=== PATIENT | male | born 1980 | race Caucasian/White ===

== ENCOUNTER 2017-01-18 04:36 | Emergency (ER) | payer MEDICAID ==
[~2017-01-18] VITALS: Ht 170.2 cm; Wt 97.0 kg
[~2017-01-18 04:36] MED LIST: OXCA300T46 PO; VENL-67 PO
[2017-01-18 06:00] LABS: BASOPHILS % (AUTO) 0.6 % (0.0-2.0); EOSINOPHILS % (AUTO) 1.3 % (1.0-6.0); LYMPHOCYTES % (AUTO) 13.3 % (22.0-44.0); MEAN CORPUSCULAR HEMOGLOBIN 28.8 pg (26.0-34.0); MEAN CORPUSCULAR HGB CONC 32.5 G/dL (31.0-37.0); MEAN CORPUSCULAR VOLUME 89 fL (80-100); MONOCYTES # (AUTO) 0.8 K/uL (0.1-1.0); MONOCYTES % (AUTO) 10.7 % (2.0-9.0); NEUTROPHILS # (AUTO) 5.8 K/uL (1.8-7.7); NEUTROPHILS % (AUTO) 74.1 % (40.0-70.0); PLATELET COUNT (AUTO) 239 K/uL (150-450); RED BLOOD CELL COUNT(AUTO) 4.86 MIL/uL (4.50-5.90); RED CELL DISTRIBUTION WIDTH 13.2 % (11.5-14.5); WHITE BLOOD COUNT (AUTO) 7.8 K/uL (4.5-11.0)
[2017-01-18 06:10] LABS: ANION GAP 7 mmol/L (8-16); CALCIUM, TOTAL 8.6 mg/dL (8.8-10.5); CARBON DIOXIDE 28 mmol/L (22-29); CHLORIDE 104 mmol/L (98-107); CREATININE 1.15 mg/dL (0.60-1.30); GLOMERULAR FILTR. RATE CALC > 60 mL/min (>60); POTASSIUM 3.7 mmol/L (3.5-5.1); SODIUM SERUM 139 mmol/L (136-145); UREA NITROGEN, BLOOD 12 mg/dL (7-18)
[2017-01-18 06:15] LABS: ALANINE AMINOTRANSFERASE 52 U/L (12-78); ALBUMIN 3.7 g/dL (3.4-5.0); ASPARTATE AMINOTRANSFERASE 51 U/L (15-37); BILIRUBIN,TOTAL 0.6 mg/dL (0.1-1.0)
[2017-01-18] MEDS ORDERED: KETOROLAC TROMETHAMINE 60 MG/2 ML VIAL IM ONE (07:30)
[2017-01-18] MEDS ORDERED: LORazepam 2 MG/ML VIAL IVP ONE (11:15)
[2017-01-18] MEDS ORDERED: FentaNYL CITRATE-PF 100 MCG/2 ML VIAL IVP ONE (13:30)
[2017-01-18 14:24] VITALS: BP 123/74
== END 2017-01-18 14:56 | disposition home or self-care (01) ==
LOC: EMS 04:42
DX: S39.012A Strain of muscle, fascia and tendon of lower back, initial encounter (principal); F17.220 Nicotine dependence, chewing tobacco, uncomplicated; F19.90 Other psychoactive substance use, unspecified, uncomplicated; Z88.8 Allergy status to other drugs, medicaments and biological substances
CPT/HCPCS: 36415; 71010; 72100; 72146; 80053; 80307; 85025; 96372; 96374; 96375; 99285; G0480; J1885; J2060; J3010

== ENCOUNTER 2017-01-20 18:48 | Emergency (ER) | payer MEDICAID ==
[~2017-01-20] VITALS: Ht 182.9 cm; Wt 90.9 kg
[2017-01-20] MEDS ORDERED: OXYC10TA93 PO (19:05)
[2017-01-20] MEDS ORDERED: KETOROLAC TROMETHAMINE 60 MG/2 ML VIAL IM ONE (19:15)
[2017-01-20 21:05] VITALS: BP 131/82
== END 2017-01-20 21:07 | disposition home or self-care (01) ==
LOC: EMS 18:49
DX: M54.5 Low back pain (principal); F15.10 Other stimulant abuse, uncomplicated; F41.9 Anxiety disorder, unspecified; F20.9 Schizophrenia, unspecified; F17.220 Nicotine dependence, chewing tobacco, uncomplicated; F19.90 Other psychoactive substance use, unspecified, uncomplicated; Z88.8 Allergy status to other drugs, medicaments and biological substances; V00.131D Fall from skateboard, subsequent encounter
CPT/HCPCS: 96372; 99283; J1885

== ENCOUNTER 2020-02-21 17:37 | Inpatient (IN) | payer MEDICAID, OTHER ==
[~2020-02-21] VITALS: Ht 183.5 cm; Wt 109.3 kg
[~2020-02-21 17:37] MED LIST changes: +OXYC10TA48 PO
[2020-02-21] MEDS ORDERED: QUET25TA PO (17:40)
[2020-02-21 18:20] LABS: BASOPHILS % (AUTO) 1.2 % (0.0-2.0); EOSINOPHILS % (AUTO) 2.5 % (1.0-6.0); HEMOGLOBIN 16.5 g/dL (13.5-17.5); LYMPHOCYTES # (AUTO) 1.7 K/uL (1.0-4.8); LYMPHOCYTES % (AUTO) 23.2 % (22.0-44.0); MEAN CORPUSCULAR HEMOGLOBIN 29.5 pg (26.0-34.0); MEAN CORPUSCULAR HGB CONC 33.6 G/dL (31.0-37.0); MEAN CORPUSCULAR VOLUME 88 fL (80-100); MONOCYTES # (AUTO) 0.6 K/uL (0.1-1.0); MONOCYTES % (AUTO) 7.7 % (2.0-9.0); NEUTROPHILS # (AUTO) 4.7 K/uL (1.8-7.7); NEUTROPHILS % (AUTO) 65.4 % (40.0-70.0); PLATELET COUNT (AUTO) 273 K/uL (150-450); RED BLOOD CELL COUNT(AUTO) 5.58 MIL/uL (4.50-5.90)
[2020-02-21 18:36] LABS: ANION GAP 10 mmol/L (8-16); CALCIUM, TOTAL 9.4 mg/dL (8.8-10.5); CARBON DIOXIDE 26 mmol/L (22-29); CHLORIDE 105 mmol/L (98-107); CREATININE 1.11 mg/dL (0.60-1.30); GLOMERULAR FILTR. RATE CALC > 60 mL/min (>60); GLUCOSE,RANDOM 110 mg/dL (70-110); POTASSIUM 3.7 mmol/L (3.5-5.1); SODIUM SERUM 141 mmol/L (136-145); UREA NITROGEN, BLOOD 15 mg/dL (7-18)
[2020-02-21 18:41] LABS: ALANINE AMINOTRANSFERASE 25 U/L (12-78); ALBUMIN 4.5 g/dL (3.4-5.0); ALKALINE PHOSPHATASE 53 U/L (46-116); ASPARTATE AMINOTRANSFERASE 18 U/L (15-37); BILIRUBIN,TOTAL 1.2 mg/dL (0.1-1.0); TOTAL PROTEIN, SERUM 7.9 g/dL (6.4-8.2)
[2020-02-21 19:01] LABS: AMPHET/METH SCREEN,URINE NEGATIVE (NEGATIVE); BARBITURATE SCREEN, URINE NEGATIVE (NEGATIVE); BENZODIAZEPINES SCREEN,URINE POSITIVE (NEGATIVE); CANNABINOID SCREEN,URINE NEGATIVE (NEGATIVE); COCAINE SCREEN,URINE NEGATIVE (NEGATIVE); METHADONE SCREEN, URINE NEGATIVE (NEGATIVE); OPIATE SCREEN,URINE NEGATIVE (NEGATIVE)
[2020-02-21 19:06] LABS: PHENCYCLIDINE SCREEN,URINE NEGATIVE (NEGATIVE)
[2020-02-21] MEDS ORDERED: ZOLPIDEM TARTRATE 10 MG TABLET PO PRN (19:30)
[2020-02-21] MEDS ORDERED: QUEtiapine FUMARATE 100 MG TABLET PO PRN (19:30)
[2020-02-22 00:40] VITALS: BP 145/90
[2020-02-22] MEDS ORDERED: DOCUSATE SODIUM 100 MG CAPSULE PO PRN (07:45)
[2020-02-22] MEDS ORDERED: MAGNESIUM HYDROXIDE SUSPENSION 30 ML UDCUP PO PRN (07:45)
[2020-02-22] MEDS ORDERED: IBUPROFEN 400 MG TABLET PO PRN (07:45)
[2020-02-22] MEDS ORDERED: MAG HYDROX/AL HYDROX/SIMETH ES 30 ML SUSPENSION UDCUP PO PRN (07:45)
[2020-02-22] MEDS ORDERED: ALBUTEROL SULFATE HFA 90 MCG/PUFF 8 GM INHALER IH PRN (07:45)
[2020-02-22] MEDS ORDERED: ACETAMINOPHEN 325 MG TABLET PO PRN (07:45)
[2020-02-22] MEDS ORDERED: NICOTINE 14 MG/24 HOUR PATCH TD PRN (07:45)
[2020-02-22] MEDS ORDERED: GuaiFENesin/D-METHORPHAN [SUGAR-FREE] 200-20MG/10 ML SYRUP UDCUP PO PRN (07:45)
[2020-02-22] MEDS ORDERED: CloNIDine HCL 0.1 MG TABLET PO PRN (07:45)
[2020-02-22] MEDS ORDERED: PETROLATUM,WHITE 28 GM JELLY TP PRN (07:45)
[2020-02-22] MEDS ORDERED: LOPERAMIDE HCL 2 MG CAPSULE PO PRN (07:45)
[2020-02-22] MEDS ORDERED: ONDANSETRON HCL 4 MG TABLET PO PRN (07:45)
[2020-02-22 08:14] VITALS: BP 12/90
[2020-02-22 08:47] LABS: CHOL/HDL RATIO 4.9 (4.2-7.3)
[2020-02-22] MEDS: QUEtiapine FUMARATE 25 MG TABLET PO SCH ×2 (10:34→17:01)
[2020-02-22] MEDS: OXcarbazepine 300 MG TABLET PO SCH ×2 (10:34→21:00)
[2020-02-22 16:20] VITALS: BP 120/69
[2020-02-22] MEDS: QUEtiapine FUMARATE 300 MG TABLET PO SCH (21:00)
[2020-02-23 02:33] VITALS: BP 126/73
[2020-02-23 08:26] VITALS: BP 130/86
[2020-02-23] MEDS: QUEtiapine FUMARATE 25 MG TABLET PO SCH ×2 (08:42→16:15)
[2020-02-23] MEDS: OXcarbazepine 300 MG TABLET PO SCH ×2 (08:42→20:15)
[2020-02-23 17:24] VITALS: BP 128/78
[2020-02-23] MEDS: QUEtiapine FUMARATE 300 MG TABLET PO SCH (20:15)
[2020-02-24 01:30] VITALS: BP 123/67
[2020-02-24 08:17] VITALS: BP 128/64
[2020-02-24] MEDS: OXcarbazepine 300 MG TABLET PO SCH ×2 (08:41→20:27)
[2020-02-24] MEDS: QUEtiapine FUMARATE 25 MG TABLET PO SCH ×2 (08:51→17:00)
[2020-02-24] MEDS ORDERED: BuPROPion HCL XL 150 MG ER TABLET PO SCH (11:30)
[2020-02-24] MEDS: VENLAFAXINE HCL 50 MG TABLET PO SCH (12:00)
[2020-02-24 16:37] VITALS: BP 127/74
[2020-02-24] MEDS: QUEtiapine FUMARATE 100 MG TABLET PO SCH (20:27)
[2020-02-25 04:26] VITALS: BP 125/67
[2020-02-25 08:08] VITALS: BP 135/80
[2020-02-25] MEDS: QUEtiapine FUMARATE 25 MG TABLET PO SCH ×2 (08:58→16:22)
[2020-02-25] MEDS: OXcarbazepine 300 MG TABLET PO SCH ×2 (08:58→20:30)
[2020-02-25] MEDS: VENLAFAXINE HCL 50 MG TABLET PO SCH (08:58)
[2020-02-25 16:13] VITALS: BP 138/86
[2020-02-25] MEDS: QUEtiapine FUMARATE 100 MG TABLET PO SCH (20:30)
[2020-02-26 04:59] VITALS: BP 115/62
[2020-02-26 08:17] VITALS: BP 143/81
[2020-02-26] MEDS: QUEtiapine FUMARATE 25 MG TABLET PO SCH ×2 (08:36→16:05)
[2020-02-26] MEDS: OXcarbazepine 300 MG TABLET PO SCH ×2 (08:36→20:56)
[2020-02-26] MEDS: VENLAFAXINE HCL 50 MG TABLET PO SCH (08:38)
[2020-02-26 16:14] VITALS: BP 140/99
[2020-02-26] MEDS: QUEtiapine FUMARATE 100 MG TABLET PO SCH (20:55)
[2020-02-27 00:11] VITALS: BP 104/70
[2020-02-27 08:08] VITALS: BP 142/72
[2020-02-27] MEDS: OXcarbazepine 300 MG TABLET PO SCH ×2 (08:19→20:04)
[2020-02-27] MEDS: VENLAFAXINE HCL 50 MG TABLET PO SCH (08:19)
[2020-02-27] MEDS: QUEtiapine FUMARATE 25 MG TABLET PO SCH ×2 (08:19→16:51)
[2020-02-27 16:00] VITALS: BP 145/105
[2020-02-27] MEDS: QUEtiapine FUMARATE 100 MG TABLET PO SCH (20:04)
[2020-02-28 00:32] VITALS: BP 104/72
[2020-02-28] MEDS ORDERED: VENL50TA44 PO (01:46)
[2020-02-28] MEDS ORDERED: QUET25TA PO (01:46)
[2020-02-28] MEDS ORDERED: OXCA300T57 PO (01:46)
[2020-02-28] MEDS ORDERED: QUET100T PO (01:46)
[2020-02-28] MEDS ORDERED: VENLAFAXINE HCL 50 MG TABLET PO SCH ×2 (09:00)
[2020-02-28] MEDS ORDERED: OXcarbazepine 300 MG TABLET PO SCH (09:00)
[2020-02-28] MEDS ORDERED: QUEtiapine FUMARATE 25 MG TABLET PO SCH (09:00)
[2020-02-28] MEDS ORDERED: QUEtiapine FUMARATE 100 MG TABLET PO SCH (21:00)
== END 2020-02-28 07:00 | disposition home or self-care (01) | DRG 885 ==
LOC: EMS 17:44 → B3A 19:30 → B2S 02-26 17:35
PROVIDERS: ADMIT Psychiatry & Neurology Child & Adolescent Psychiatry; ATTEND Psychiatry & Neurology Child & Adolescent Psychiatry
DX: F25.1 Schizoaffective disorder, depressive type (principal); B19.20 Unspecified viral hepatitis C without hepatic coma; R45.851 Suicidal ideations; E78.5 Hyperlipidemia, unspecified; F03.90 Unspecified dementia, unspecified severity, without behavioral disturbance, psychotic disturbance, mood disturbance, and anxiety; I10 Essential (primary) hypertension; F17.210 Nicotine dependence, cigarettes, uncomplicated; D64.9 Anemia, unspecified; F41.9 Anxiety disorder, unspecified; R32 Unspecified urinary incontinence; Z59.0 Homelessness; Z65.3 Problems related to other legal circumstances; Z91.5 Personal history of self-harm; Z88.8 Allergy status to other drugs, medicaments and biological substances; Z79.899 Other long term (current) drug therapy; Z85.830 Personal history of malignant neoplasm of bone
CPT/HCPCS: G0480

== ENCOUNTER 2020-05-16 19:20 | Emergency (ER) | payer OTHER ==
[~2020-05-16] VITALS: Ht 182.9 cm; Wt 106.8 kg
[~2020-05-16 19:20] MED LIST changes: -OXCA300T46 PO; +OXCA300T57 PO; -OXYC10TA48 PO; +QUET100T PO; +QUET25TA PO; -VENL-67 PO; +VENL50TA44 PO
[2020-05-16] MEDS ORDERED: DOXYCYCLINE HYCLATE 100 MG TABLET PO ONE (21:30)
[2020-05-16] MEDS ORDERED: GuaiFENesin/D-METHORPHAN [SUGAR-FREE] 200-20MG/10 ML SYRUP UDCUP PO ONE (21:30)
[2020-05-16 22:34] VITALS: BP 132/74
== END 2020-05-16 23:06 | disposition home or self-care (01) ==
LOC: EMS 19:21
DX: J98.8 Other specified respiratory disorders (principal); F25.9 Schizoaffective disorder, unspecified; F41.9 Anxiety disorder, unspecified; F17.210 Nicotine dependence, cigarettes, uncomplicated; F19.90 Other psychoactive substance use, unspecified, uncomplicated; Z20.828 Contact with and (suspected) exposure to other viral communicable diseases; Z88.8 Allergy status to other drugs, medicaments and biological substances
CPT/HCPCS: 87426

== ENCOUNTER 2020-06-02 09:36 | Emergency (ER) | payer OTHER ==
[~2020-06-02] VITALS: Ht 180.3 cm; Wt 109.1 kg
[2020-06-02 11:29] VITALS: BP 132/77
== END 2020-06-02 11:50 | disposition home or self-care (01) ==
LOC: EMS 09:37
DX: R05 Cough (principal); F41.9 Anxiety disorder, unspecified; F20.9 Schizophrenia, unspecified; F17.210 Nicotine dependence, cigarettes, uncomplicated; F19.90 Other psychoactive substance use, unspecified, uncomplicated; Z88.8 Allergy status to other drugs, medicaments and biological substances
CPT/HCPCS: 71045-TC

== ENCOUNTER 2020-06-17 11:51 | Emergency (ER) | payer OTHER ==
[~2020-06-17] VITALS: Ht 182.9 cm; Wt 106.8 kg
[2020-06-17 13:02] VITALS: BP 140/81
== END 2020-06-17 13:06 | disposition home or self-care (01) ==
LOC: EMS 11:54
DX: R05 Cough (principal); Z20.828 Contact with and (suspected) exposure to other viral communicable diseases; F17.210 Nicotine dependence, cigarettes, uncomplicated; F15.90 Other stimulant use, unspecified, uncomplicated; F41.9 Anxiety disorder, unspecified; F20.9 Schizophrenia, unspecified; Z88.8 Allergy status to other drugs, medicaments and biological substances; Z79.899 Other long term (current) drug therapy
CPT/HCPCS: 99283; U0003

== ENCOUNTER 2020-08-07 11:54 | Emergency (ER) | payer OTHER ==
[~2020-08-07] VITALS: Ht 182.9 cm; Wt 100.0 kg
[2020-08-07 11:58] VITALS: BP 143/97
[2020-08-07 12:54] LABS: COVID AG,FIA SOURCE NASOPHARYNGEAL
== END 2020-08-07 21:00 | disposition home or self-care (01) ==
LOC: EMS 12:15
DX: U07.1 COVID-19 (principal); F20.9 Schizophrenia, unspecified; F15.10 Other stimulant abuse, uncomplicated; F41.9 Anxiety disorder, unspecified; Z88.8 Allergy status to other drugs, medicaments and biological substances; Z79.899 Other long term (current) drug therapy
CPT/HCPCS: 87426; 99283; U0003

== ENCOUNTER 2021-01-06 20:35 | Emergency (ER) | payer OTHER ==
[~2021-01-06] VITALS: Ht 182.9 cm; Wt 90.9 kg
[2021-01-06] MEDS ORDERED: BECL10.6 IH (20:55)
[2021-01-06] MEDS ORDERED: ALBU8HFA IH (20:55)
[2021-01-06 22:21] LABS: APPEARANCE,URINE CLEAR (CLEAR); BILIRUBIN,URINE NEGATIVE (NEGATIVE); GLUCOSE, URINE (UA) NEGATIVE (NEGATIVE); KETONES,URINE NEGATIVE (NEGATIVE); LEUKOCYTE ESTERASE ,URINE NEGATIVE (NEGATIVE); NITRATE,URINE NEGATIVE (NEGATIVE); OCCULT BLOOD,URINE NEGATIVE (NEGATIVE); PROTEIN,URINE NEGATIVE (NEGATIVE); UROBILINOGEN,URINE 0.2 mg/dL (<=1.0)
[2021-01-07] MEDS ORDERED: CEPHALEXIN MONOHYDRATE 250 MG CAPSULE PO ONE (03:00)
[2021-01-07] MEDS ORDERED: IBUPROFEN 800 MG TABLET PO ONE (03:00)
[2021-01-07 03:15] VITALS: BP 122/70
== END 2021-01-07 03:34 | disposition home or self-care (01) ==
LOC: EMS 20:38
DX: N45.1 Epididymitis (principal); F41.9 Anxiety disorder, unspecified; F20.9 Schizophrenia, unspecified; F17.210 Nicotine dependence, cigarettes, uncomplicated; F19.90 Other psychoactive substance use, unspecified, uncomplicated; Z88.8 Allergy status to other drugs, medicaments and biological substances
CPT/HCPCS: 76870; 81003; 99285

== ENCOUNTER 2021-01-19 20:51 | Emergency (ER) | payer OTHER ==
[~2021-01-19] VITALS: Ht 182.9 cm; Wt 93.2 kg
[~2021-01-19 20:51] MED LIST changes: +ALBU8HFA IH; +BECL10.6 IH
[2021-01-19] MEDS ORDERED: BENZONATATE 100 MG CAPSULE PO ONE (22:15)
[2021-01-20 00:08] LABS: COVID AG,FIA SOURCE NASOPHARYNGEAL
[2021-01-20 01:22] VITALS: BP 124/83
== END 2021-01-20 01:22 | disposition home or self-care (01) ==
LOC: EMS 20:51
DX: J40 Bronchitis, not specified as acute or chronic (principal); J04.0 Acute laryngitis; F41.9 Anxiety disorder, unspecified; F20.9 Schizophrenia, unspecified; F17.210 Nicotine dependence, cigarettes, uncomplicated; F19.90 Other psychoactive substance use, unspecified, uncomplicated; Z20.822 Contact with and (suspected) exposure to COVID-19; Z88.8 Allergy status to other drugs, medicaments and biological substances; Z91.013 Allergy to seafood
CPT/HCPCS: 71045; 87426; 99284

== ENCOUNTER 2021-03-10 09:25 | Emergency (ER) | payer OTHER ==
[~2021-03-10] VITALS: Ht 182.9 cm; Wt 93.2 kg
[2021-03-10 09:29] VITALS: BP 140/96
== END 2021-03-10 10:24 | disposition home or self-care (01) ==
LOC: EMS 09:29
DX: J06.9 Acute upper respiratory infection, unspecified (principal); J45.909 Unspecified asthma, uncomplicated; F20.9 Schizophrenia, unspecified; F41.9 Anxiety disorder, unspecified; F17.210 Nicotine dependence, cigarettes, uncomplicated; F19.90 Other psychoactive substance use, unspecified, uncomplicated; Z86.16 Personal history of COVID-19; Z88.8 Allergy status to other drugs, medicaments and biological substances; Z91.013 Allergy to seafood
CPT/HCPCS: 99282; Z7502

== ENCOUNTER 2021-07-03 23:08 | Emergency (ER) | payer OTHER ==
[~2021-07-03] VITALS: Ht 182.9 cm; Wt 90.9 kg
[2021-07-03] MEDS ORDERED: AMOX TR/POT CLAV 875 MG/125 MG TABLET PO ONE (23:45)
[2021-07-03] MEDS ORDERED: OxyCODONE HCL 5 MG IR TABLET PO ONE (23:45)
[2021-07-04 00:10] VITALS: BP 127/86
== END 2021-07-04 00:29 | disposition home or self-care (01) ==
LOC: EMS 23:10
DX: K08.89 Other specified disorders of teeth and supporting structures (principal); J45.909 Unspecified asthma, uncomplicated; F20.9 Schizophrenia, unspecified; F17.210 Nicotine dependence, cigarettes, uncomplicated; Z91.013 Allergy to seafood
CPT/HCPCS: 99283

== ENCOUNTER 2021-09-01 19:51 | Emergency (ER) | payer OTHER ==
[~2021-09-01] VITALS: Ht 182.9 cm; Wt 100.0 kg
[2021-09-01 21:15] VITALS: BP 122/65
== END 2021-09-01 21:20 | disposition home or self-care (01) ==
LOC: EMS 19:54
DX: R51.9 Headache, unspecified (principal); F17.210 Nicotine dependence, cigarettes, uncomplicated; F41.9 Anxiety disorder, unspecified; F20.9 Schizophrenia, unspecified; Z20.822 Contact with and (suspected) exposure to COVID-19
CPT/HCPCS: 99283; U0003

== ENCOUNTER 2021-11-20 22:24 | Emergency (ER) | payer OTHER ==
[~2021-11-20] VITALS: Ht 182.9 cm; Wt 97.7 kg
[2021-11-20] MEDS ORDERED: IBUP-1554 PO (23:50)
[2021-11-20] MEDS ORDERED: NYST100033 PO (23:50)
[2021-11-21 00:16] VITALS: BP 119/74
== END 2021-11-21 00:33 | disposition home or self-care (01) ==
LOC: EMS 22:26
DX: B37.9 Candidiasis, unspecified (principal); J06.9 Acute upper respiratory infection, unspecified; F41.9 Anxiety disorder, unspecified; J45.909 Unspecified asthma, uncomplicated; F20.9 Schizophrenia, unspecified; F17.210 Nicotine dependence, cigarettes, uncomplicated; Z91.013 Allergy to seafood; Z88.8 Allergy status to other drugs, medicaments and biological substances
CPT/HCPCS: 99283; Z7502

== ENCOUNTER 2021-11-27 22:28 | Emergency (ER) | payer OTHER ==
[~2021-11-27] VITALS: Ht 182.9 cm; Wt 97.7 kg
[~2021-11-27 22:28] MED LIST changes: +IBUP-1554 PO; +NYST100033 PO
[2021-11-28] MEDS ORDERED: MAALOX/LIDOCAINE/NYSTATIN SUSP 5 ML ORAL.SYG MM ONE
[2021-11-28 01:06] VITALS: BP 130/77
== END 2021-11-28 01:47 | disposition home or self-care (01) ==
LOC: EMS 22:31
DX: J02.9 Acute pharyngitis, unspecified (principal); F17.210 Nicotine dependence, cigarettes, uncomplicated; F41.9 Anxiety disorder, unspecified; J45.909 Unspecified asthma, uncomplicated; F20.9 Schizophrenia, unspecified; Z91.013 Allergy to seafood; Z88.8 Allergy status to other drugs, medicaments and biological substances
CPT/HCPCS: 87430; 99283

== ENCOUNTER 2021-12-12 10:49 | Emergency (ER) | payer OTHER ==
[~2021-12-12] VITALS: Ht 182.9 cm; Wt 99.0 kg
[~2021-12-12 10:49] MED LIST changes: -IBUP-1554 PO
[2021-12-12] MEDS ORDERED: LIDOCAINE 5% TRANSDERMAL PATCH TD ONE (11:30)
[2021-12-12] MEDS ORDERED: ACETAMINOPHEN 325 MG TABLET PO ONE (11:30)
[2021-12-12] MEDS ORDERED: KETOROLAC TROMETHAMINE 30 MG/ML VIAL IM ONE (12:30)
[2021-12-12] MEDS ORDERED: LIDO700A15 TP (12:35)
[2021-12-12 12:36] VITALS: BP 122/67
== END 2021-12-12 13:04 | disposition home or self-care (01) ==
LOC: EMS 10:51
DX: S39.012A Strain of muscle, fascia and tendon of lower back, initial encounter (principal); Z88.6 Allergy status to analgesic agent; Z88.8 Allergy status to other drugs, medicaments and biological substances; Z91.013 Allergy to seafood; X58.XXXA Exposure to other specified factors, initial encounter; Y93.89 Activity, other specified; Y92.89 Other specified places as the place of occurrence of the external cause; Y99.8 Other external cause status
CPT/HCPCS: 96372; 99283; J1885

== ENCOUNTER 2022-03-21 20:09 | Emergency (ER) | payer OTHER ==
[~2022-03-21] VITALS: Ht 182.9 cm; Wt 95.5 kg
[~2022-03-21 20:09] MED LIST changes: +LIDO700A15 TP
[2022-03-22 03:16] VITALS: BP 156/90
[2022-03-22] MEDS ORDERED: CLOT15CR29 TP (03:20)
[2022-03-22] MEDS ORDERED: CEPH-558 PO (03:21)
== END 2022-03-22 05:55 | disposition home or self-care (01) ==
LOC: EMS 20:11
DX: B35.3 Tinea pedis (principal); L03.116 Cellulitis of left lower limb; Z88.8 Allergy status to other drugs, medicaments and biological substances; Z79.899 Other long term (current) drug therapy
CPT/HCPCS: 99283; Z7502

== ENCOUNTER 2022-04-06 11:00 | Emergency (ER) | payer OTHER ==
[~2022-04-06] VITALS: Ht 182.9 cm; Wt 95.5 kg
[~2022-04-06 11:00] MED LIST changes: +CEPH-558 PO; +CLOT15CR29 TP
[2022-04-06 12:16] LABS: COVID AG,FIA SOURCE NASOPHARYNGEAL
[2022-04-06 12:17] LABS: INFLUENZA TYPE A NEGATIVE FOR TYPE A (NEGATIVE); INFLUENZA TYPE B NEGATIVE FOR TYPE B (NEGATIVE)
[2022-04-06] MEDS ORDERED: OXYMETAZOLINE HCL 0.05% 15 ML NASAL SPRAY NASAL ONE (13:00)
[2022-04-06 13:27] VITALS: BP 130/78
[2022-04-07] MEDS ORDERED: BENZ-70 PO (16:53)
[2022-04-07] MEDS ORDERED: IBUP-2070 PO (16:53)
== END 2022-04-06 13:28 | disposition home or self-care (01) ==
LOC: EMS 11:03
DX: J40 Bronchitis, not specified as acute or chronic (principal); Z85.89 Personal history of malignant neoplasm of other organs and systems; Z87.448 Personal history of other diseases of urinary system; Z87.19 Personal history of other diseases of the digestive system; Z86.16 Personal history of COVID-19; Z98.890 Other specified postprocedural states; Z88.8 Allergy status to other drugs, medicaments and biological substances; Z91.013 Allergy to seafood; Z20.822 Contact with and (suspected) exposure to COVID-19
CPT/HCPCS: 71045; 87804; 99284

== ENCOUNTER 2022-04-07 15:55 | Emergency (ER) | payer OTHER ==
[~2022-04-07] VITALS: Ht 182.9 cm; Wt 105.5 kg
[~2022-04-07 15:55] MED LIST changes: -CEPH-558 PO; -CLOT15CR29 TP
[2022-04-07] MEDS ORDERED: BENZ-70 PO (16:53)
[2022-04-07] MEDS ORDERED: IBUP-2070 PO (16:53)
[2022-04-07 16:56] VITALS: BP 137/65
== END 2022-04-07 17:13 | disposition home or self-care (01) ==
LOC: EMS 15:56
DX: K40.90 Unilateral inguinal hernia, without obstruction or gangrene, not specified as recurrent (principal); Z86.16 Personal history of COVID-19; Z86.19 Personal history of other infectious and parasitic diseases
CPT/HCPCS: 99282; Z7502

== ENCOUNTER 2022-04-09 21:25 | Emergency (ER) | payer OTHER ==
[~2022-04-09] VITALS: Ht 182.9 cm; Wt 105.5 kg
[~2022-04-09 21:25] MED LIST changes: +BENZ-70 PO; +IBUP-2070 PO
[2022-04-09 21:29] VITALS: BP 118/53
[2022-04-09 23:32] LABS: COVID AG,FIA SOURCE NASAL SWAB
[2022-04-09 23:56] LABS: ANION GAP 9 mmol/L (8-16); CALCIUM, TOTAL 8.7 mg/dL (8.8-10.5); CARBON DIOXIDE 28 mmol/L (22-29); CHLORIDE 102 mmol/L (98-107); CREATININE 0.85 mg/dL (0.60-1.30); GLUCOSE,RANDOM 116 mg/dL (70-110); SODIUM SERUM 139 mmol/L (136-145); UREA NITROGEN, BLOOD 17 mg/dL (7-18)
[2022-04-10] LABS: INR 0.9 (0.9-1.1)
[2022-04-10 00:01] LABS: ALANINE AMINOTRANSFERASE 17 U/L (12-78); ALBUMIN 3.5 g/dL (3.4-5.0); ALKALINE PHOSPHATASE 61 U/L (46-116); ASPARTATE AMINOTRANSFERASE 15 U/L (15-37); BILIRUBIN,TOTAL 0.2 mg/dL (0.1-1.0); TOTAL PROTEIN, SERUM 6.7 g/dL (6.4-8.2)
[2022-04-10 00:05] LABS: GLOMERULAR FILTR. RATE CALC > 60 mL/min (>60)
[2022-04-10 00:27] LABS: BASOPHILS % (AUTO) 1.2 % (0.0-2.0); EOSINOPHILS % (AUTO) 3.3 % (1.0-6.0); HEMATOCRIT 42.3 % (41-53); HEMOGLOBIN 14.3 g/dL (13.5-17.5); LYMPHOCYTES # (AUTO) 1.7 K/uL (1.0-4.8); LYMPHOCYTES % (AUTO) 29.9 % (22.0-44.0); MEAN CORPUSCULAR HGB CONC 33.9 G/dL (31.0-37.0); MEAN CORPUSCULAR VOLUME 85 fL (80-100); MONOCYTES # (AUTO) 0.5 K/uL (0.1-1.0); MONOCYTES % (AUTO) 9.5 % (2.0-9.0); NEUTROPHILS # (AUTO) 3.1 K/uL (1.8-7.7); NEUTROPHILS % (AUTO) 56.1 % (40.0-70.0); PLATELET COUNT (AUTO) 249 K/uL (150-450); RED BLOOD CELL COUNT(AUTO) 4.95 MIL/uL (4.50-5.90)
[2022-04-10 00:45] LABS: B-TYPE NATRIURETIC PEPTIDE 15 pg/mL (0-100)
[2022-04-10] MEDS ORDERED: BENZ1LOZ50 PO (00:47)
[2022-04-10] MEDS ORDERED: BENZ-70 PO (00:47)
== END 2022-04-10 01:15 | disposition home or self-care (01) ==
LOC: EMS 21:28
DX: R05.9 Cough, unspecified (principal); R04.2 Hemoptysis; Z88.8 Allergy status to other drugs, medicaments and biological substances; Z79.899 Other long term (current) drug therapy; Z20.822 Contact with and (suspected) exposure to COVID-19
CPT/HCPCS: 71045; 80053; 83880; 84484; 85025; 85610; 85730; 93005; 99285; 36415-L1; 36415-TC

== ENCOUNTER 2022-05-09 18:57 | Emergency (ER) | payer OTHER ==
[~2022-05-09] VITALS: Ht 182.9 cm; Wt 104.5 kg
[~2022-05-09 18:57] MED LIST changes: +BENZ1LOZ50 PO
[2022-05-09 19:08] VITALS: BP 122/70
[2022-05-09] MEDS ORDERED: DOXY100C51 PO (20:06)
== END 2022-05-09 22:30 | disposition home or self-care (01) ==
LOC: EMS 20:48
DX: N45.1 Epididymitis (principal); B19.20 Unspecified viral hepatitis C without hepatic coma; Z86.16 Personal history of COVID-19; Z88.5 Allergy status to narcotic agent
CPT/HCPCS: 99283

== ENCOUNTER 2022-05-10 21:15 | Emergency (ER) | payer OTHER ==
[~2022-05-10] VITALS: Ht 182.9 cm; Wt 102.0 kg
[~2022-05-10 21:15] MED LIST changes: +DOXY100C51 PO
[2022-05-11 02:04] LABS: APPEARANCE,URINE CLEAR (CLEAR); BILIRUBIN,URINE NEGATIVE (NEGATIVE); GLUCOSE, URINE (UA) NEGATIVE (NEGATIVE); KETONES,URINE NEGATIVE (NEGATIVE); LEUKOCYTE ESTERASE ,URINE NEGATIVE (NEGATIVE); NITRATE,URINE NEGATIVE (NEGATIVE); OCCULT BLOOD,URINE NEGATIVE (NEGATIVE); PH,URINE 5.5 (5.0-8.0); PROTEIN,URINE NEGATIVE (NEGATIVE); SPECIFIC GRAVITIY, URINE 1.024 (1.003-1.030); UROBILINOGEN,URINE <=1.0 mg/dL (<=1.0)
[2022-05-11] MEDS ORDERED: ACETAMINOPHEN 500 MG TABLET PO ONE (03:15)
[2022-05-11] MEDS ORDERED: KETOROLAC TROMETHAMINE 30 MG/ML VIAL IM ONE (03:15)
[2022-05-11 03:28] LABS: BASOPHILS % (AUTO) 1.8 % (0.0-2.0); EOSINOPHILS % (AUTO) 3.1 % (1.0-6.0); HEMATOCRIT 44.5 % (41-53); HEMOGLOBIN 14.9 g/dL (13.5-17.5); LYMPHOCYTES # (AUTO) 1.2 K/uL (1.0-4.8); LYMPHOCYTES % (AUTO) 28.5 % (22.0-44.0); MEAN CORPUSCULAR HEMOGLOBIN 28.8 pg (26.0-34.0); MEAN CORPUSCULAR HGB CONC 33.4 G/dL (31.0-37.0); MEAN CORPUSCULAR VOLUME 86 fL (80-100); MONOCYTES # (AUTO) 0.4 K/uL (0.1-1.0); MONOCYTES % (AUTO) 9.8 % (2.0-9.0); NEUTROPHILS # (AUTO) 2.5 K/uL (1.8-7.7); NEUTROPHILS % (AUTO) 56.8 % (40.0-70.0); PLATELET COUNT (AUTO) 192 K/uL (150-450); RED BLOOD CELL COUNT(AUTO) 5.16 MIL/uL (4.50-5.90); RED CELL DISTRIBUTION WIDTH 14.3 % (11.5-14.5)
[2022-05-11 03:37] LABS: ANION GAP 3 mmol/L (8-16); CARBON DIOXIDE 28 mmol/L (22-29); CHLORIDE 104 mmol/L (98-107); CREATININE 0.72 mg/dL (0.60-1.30); GLUCOSE,RANDOM 132 mg/dL (70-110); POTASSIUM 3.6 mmol/L (3.5-5.1); SODIUM SERUM 135 mmol/L (136-145); UREA NITROGEN, BLOOD 17 mg/dL (7-18)
[2022-05-11 03:39] LABS: GLOMERULAR FILTR. RATE CALC > 60 mL/min (>60)
[2022-05-11 03:42] LABS: ALANINE AMINOTRANSFERASE 20 U/L (12-78); ALBUMIN 3.8 g/dL (3.4-5.0); ALKALINE PHOSPHATASE 47 U/L (46-116); ASPARTATE AMINOTRANSFERASE 17 U/L (15-37); BILIRUBIN,TOTAL 0.5 mg/dL (0.1-1.0); TOTAL PROTEIN, SERUM 6.6 g/dL (6.4-8.2)
[2022-05-11 08:41] VITALS: BP 139/84
== END 2022-05-11 10:32 | disposition home or self-care (01) ==
LOC: EMS 21:16
DX: N50.812 Left testicular pain (principal); I86.1 Scrotal varices; N43.3 Hydrocele, unspecified; Z87.09 Personal history of other diseases of the respiratory system; Z87.448 Personal history of other diseases of urinary system; Z87.19 Personal history of other diseases of the digestive system; Z85.89 Personal history of malignant neoplasm of other organs and systems; Z86.16 Personal history of COVID-19; Z98.890 Other specified postprocedural states; Z88.8 Allergy status to other drugs, medicaments and biological substances; Z91.013 Allergy to seafood
CPT/HCPCS: 99285; 80053; 81003; 85025; 36415; 76870; 96372; J1885

== ENCOUNTER 2022-10-04 19:35 | Emergency (ER) | payer OTHER ==
[~2022-10-04] VITALS: Ht 177.8 cm; Wt 75.0 kg
[~2022-10-04 19:35] MED LIST changes: +BENZ-227 PO; -BENZ-70 PO; -BENZ1LOZ50 PO; +BENZ1LOZ77 PO; +IBUP-1492 PO; -IBUP-2070 PO
[2022-10-04] MEDS ORDERED: CEPH-558 PO (21:04)
[2022-10-04 22:24] VITALS: BP 119/74
== END 2022-10-04 23:02 | disposition home or self-care (01) ==
LOC: EMS 19:36
DX: L73.9 Follicular disorder, unspecified (principal); Z98.890 Other specified postprocedural states; Z91.013 Allergy to seafood; Z88.8 Allergy status to other drugs, medicaments and biological substances
CPT/HCPCS: 99283; Z7502

== ENCOUNTER 2022-10-06 11:48 | Emergency (ER) | payer OTHER ==
[~2022-10-06] VITALS: Ht 182.9 cm; Wt 103.6 kg
[~2022-10-06 11:48] MED LIST changes: +CEPH-558 PO
[2022-10-06] MEDS ORDERED: BACTRIM PO (11:56)
[2022-10-06 12:27] VITALS: BP 126/76
[2022-10-06] MEDS ORDERED: BACTDSB PO (13:03)
== END 2022-10-06 13:34 | disposition home or self-care (01) ==
LOC: EMS 11:58
DX: L03.211 Cellulitis of face (principal); Z98.890 Other specified postprocedural states; Z88.8 Allergy status to other drugs, medicaments and biological substances; Z91.013 Allergy to seafood
CPT/HCPCS: 99283; Z7502

== ENCOUNTER 2023-01-17 15:53 | Emergency (ER) | payer OTHER ==
[~2023-01-17] VITALS: Ht 185.4 cm; Wt 95.5 kg
[~2023-01-17 15:53] MED LIST changes: -ALBU8HFA IH; +BACTDSB PO; +BACTRIM PO; -BECL10.6 IH; -BENZ-227 PO; -BENZ1LOZ77 PO; -DOXY100C51 PO; -IBUP-1492 PO; -LIDO700A15 TP; -NYST100033 PO; -OXCA300T57 PO; -QUET100T PO; -QUET25TA PO; -VENL50TA44 PO
[2023-01-17 17:41] LABS: BASOPHILS % (AUTO) 2.9 % (0.0-2.0); EOSINOPHILS % (AUTO) 2.9 % (1.0-6.0); HEMATOCRIT 44.8 % (41-53); LYMPHOCYTES # (AUTO) 1.5 K/uL (1.0-4.8); LYMPHOCYTES % (AUTO) 22.2 % (22.0-44.0); MEAN CORPUSCULAR HEMOGLOBIN 29.5 pg (26.0-34.0); MEAN CORPUSCULAR HGB CONC 33.4 G/dL (31.0-37.0); MEAN CORPUSCULAR VOLUME 88 fL (80-100); MONOCYTES # (AUTO) 0.5 K/uL (0.1-1.0); MONOCYTES % (AUTO) 7.2 % (2.0-9.0); NEUTROPHILS # (AUTO) 4.4 K/uL (1.8-7.7); NEUTROPHILS % (AUTO) 64.8 % (40.0-70.0); PLATELET COUNT (AUTO) 229 K/uL (150-450); RED BLOOD CELL COUNT(AUTO) 5.08 MIL/uL (4.50-5.90); RED CELL DISTRIBUTION WIDTH 14.1 % (11.5-14.5)
[2023-01-17 17:56] LABS: ANION GAP 7 mmol/L (8-16); CALCIUM, TOTAL 9.3 mg/dL (8.8-10.5); CARBON DIOXIDE 26 mmol/L (22-29); CHLORIDE 105 mmol/L (98-107); CREATININE 1.02 mg/dL (0.60-1.30); GLOMERULAR FILTR. RATE CALC > 60 mL/min (>60); GLUCOSE,RANDOM 98 mg/dL (70-110); SODIUM SERUM 138 mmol/L (136-145)
[2023-01-17] MEDS ORDERED: SODIUM CHLORIDE 0.9% 500 ML IV ONE (18:00)
[2023-01-17 18:01] LABS: ALANINE AMINOTRANSFERASE 24 U/L (12-78); ALKALINE PHOSPHATASE 48 U/L (46-116); ASPARTATE AMINOTRANSFERASE 18 U/L (15-37); BILIRUBIN,TOTAL 0.5 mg/dL (0.1-1.0); TOTAL PROTEIN, SERUM 7.1 g/dL (6.4-8.2)
[2023-01-17 18:50] VITALS: BP 124/72
[2023-01-17 19:20] LABS: APPEARANCE,URINE CLEAR (CLEAR); BILIRUBIN,URINE NEGATIVE (NEGATIVE); GLUCOSE, URINE (UA) NEGATIVE (NEGATIVE); KETONES,URINE NEGATIVE (NEGATIVE); LEUKOCYTE ESTERASE ,URINE NEGATIVE (NEGATIVE); NITRATE,URINE NEGATIVE (NEGATIVE); OCCULT BLOOD,URINE NEGATIVE (NEGATIVE); PROTEIN,URINE NEGATIVE (NEGATIVE); SPECIFIC GRAVITIY, URINE 1.023 (1.003-1.030); UROBILINOGEN,URINE <=1.0 mg/dL (<=1.0)
[2023-01-17 19:30] LABS: BACTERIA,URINE None Seen /HPF (None Seen); RBC,URINE None Seen /HPF (0-2); WBC,URINE None Seen /HPF (0-5)
== END 2023-01-17 19:17 | disposition home or self-care (01) ==
LOC: EMS 15:54
DX: R53.1 Weakness (principal); M62.838 Other muscle spasm; Z88.8 Allergy status to other drugs, medicaments and biological substances; Z91.013 Allergy to seafood
CPT/HCPCS: 99284; 96360; 80053; 81001; 84484; 85025; 36415; 93005; J7040

== ENCOUNTER 2023-08-29 13:06 | Emergency (ER) | payer OTHER ==
[~2023-08-29] VITALS: Ht 180.3 cm; Wt 97.7 kg
[2023-08-29 13:26] VITALS: TEMP 97.8
[2023-08-29 13:54] LABS: COVID AG,FIA SOURCE NASAL SWAB
[2023-08-29 14:20] LABS: INFLUENZA TYPE A NEGATIVE FOR TYPE A (NEGATIVE); INFLUENZA TYPE B NEGATIVE FOR TYPE B (NEGATIVE)
[2023-08-29 14:21] LABS: SARS-COV2 (COVID) ANTIGEN,FIA Negative (Negative)
[2023-08-29] MEDS ORDERED: AMOX250C4 PO (15:46)
[2023-08-29] MEDS ORDERED: BENZ-227 PO (15:47)
[2023-08-29 15:58] VITALS: BP 121/74; PULSE 84; RESP 16
== END 2023-08-29 16:14 | disposition home or self-care (01) ==
LOC: EMS 13:08
DX: J32.9 Chronic sinusitis, unspecified (principal); Z98.890 Other specified postprocedural states; Z91.013 Allergy to seafood; Z88.8 Allergy status to other drugs, medicaments and biological substances; Z20.822 Contact with and (suspected) exposure to COVID-19
CPT/HCPCS: 87804; 99283

== ENCOUNTER 2023-12-06 17:26 | Emergency (ER) | payer OTHER ==
[~2023-12-06] VITALS: Ht 180.3 cm; Wt 95.5 kg
[~2023-12-06 17:26] MED LIST changes: +AMOX250C4 PO; -BACTDSB PO; -BACTRIM PO; +BENZ-227 PO; -CEPH-558 PO
[2023-12-06 17:42] VITALS: TEMP 98.6
[2023-12-06] MEDS: METHOCARBAMOL 100 MG/ML 10 ML VIAL IVP ONE (19:42)
[2023-12-06] MEDS: ACETAMINOPHEN 500 MG TABLET PO ONE (19:42)
[2023-12-06] MEDS: KETOROLAC TROMETHAMINE 30 MG/ML VIAL IVP ONE (19:42)
[2023-12-06 20:51] VITALS: BP 114/55; PULSE 74; RESP 18
[2023-12-06] MEDS ORDERED: IBUP-1554 PO (20:58)
[2023-12-06] MEDS ORDERED: METH-812 PO (20:58)
== END 2023-12-06 21:14 | disposition home or self-care (01) ==
LOC: EMS 17:26
DX: S39.012A Strain of muscle, fascia and tendon of lower back, initial encounter (principal); J20.9 Acute bronchitis, unspecified; Z91.013 Allergy to seafood; X58.XXXA Exposure to other specified factors, initial encounter; Y93.89 Activity, other specified; Y92.89 Other specified places as the place of occurrence of the external cause; Y99.8 Other external cause status
CPT/HCPCS: 99284; 96374; 96375; J1885; J2800

== ENCOUNTER 2024-12-24 05:42 | Emergency (ER) | payer OTHER ==
[~2024-12-24] VITALS: Ht 185.4 cm; Wt 98.0 kg
[~2024-12-24 05:42] MED LIST changes: -AMOX250C4 PO; -BENZ-227 PO; +IBUP-1554 PO; +METH-812 PO
[2024-12-24 06:10] VITALS: BP 133/79; PULSE 78; RESP 16; TEMP 97.9; O2SAT 100
[2024-12-24] MEDS ORDERED: CEFU250T87 PO (07:03)
[2024-12-24] MEDS: CEFUROXIME AXETIL 250 MG TABLET PO ONE (07:23)
== END 2024-12-24 07:23 | disposition home or self-care (01) ==
LOC: EMS 05:56
DX: L02.611 Cutaneous abscess of right foot (principal); Z88.8 Allergy status to other drugs, medicaments and biological substances; Z91.013 Allergy to seafood; Z79.899 Other long term (current) drug therapy
CPT/HCPCS: 99283

== ENCOUNTER 2025-04-04 22:52 | Emergency (ER) | payer OTHER ==
[~2025-04-04] VITALS: Ht 182.9 cm; Wt 100.0 kg
[~2025-04-04 22:52] MED LIST changes: +CEFU250T87 PO
[2025-04-04 23:25] VITALS: BP 122/69; PULSE 66; RESP 18; TEMP 98.005280; O2SAT 99
[2025-04-05] MEDS: LIDOCAINE 5% TRANSDERMAL PATCH TD ONE (00:02)
[2025-04-05] MEDS: ACETAMINOPHEN 500 MG TABLET PO ONE (00:02)
[2025-04-05] MEDS: BACLOFEN 10 MG TABLET PO ONE (00:02)
[2025-04-05] MEDS: KETOROLAC TROMETHAMINE 30 MG/ML VIAL IM ONE (00:03)
== END 2025-04-05 02:31 | disposition home or self-care (01) ==
LOC: EMS 22:54
DX: S33.5XXA Sprain of ligaments of lumbar spine, initial encounter (principal); Z86.16 Personal history of COVID-19; Z86.19 Personal history of other infectious and parasitic diseases; X58.XXXA Exposure to other specified factors, initial encounter; Y93.01 Activity, walking, marching and hiking; Y92.89 Other specified places as the place of occurrence of the external cause; Y99.8 Other external cause status
CPT/HCPCS: 99284; 96372; J1885

== ENCOUNTER 2025-04-18 20:58 | Emergency (ER) | payer OTHER ==
[~2025-04-18] VITALS: Ht 181.6 cm; Wt 102.4 kg
[2025-04-18 21:01] VITALS: BP 124/75; PULSE 82; RESP 16; TEMP 97.7; O2SAT 98
== END 2025-04-18 22:14 | disposition left against medical advice (07) ==
LOC: EMS 20:58
DX: M79.672 Pain in left foot (principal); Z53.21 Procedure and treatment not carried out due to patient leaving prior to being seen by health care provider